=== PATIENT | female | born 1950 | race Caucasian/White ===

== ENCOUNTER 2016-09-19 17:34 | Emergency (ER) | payer MEDICARE, BC ==
[2016-09-19 17:40] VITALS: BP 162/101
[2016-09-19] MEDS ORDERED: IV NORMAL SALINE 1,000ML 1,000 ML IV SCH (18:09)
--- NOTE | 2016-09-19 18:16 | PHYS DOC ---
Past History Past Medical History: Asthma, Cancer, GERD, Heart Disease, Other Past Surgical History: Other Alcohol Use: None Drug Use: None Adult General Chief Complaint Chief Complaint: NAUSEA/VOMITING/DIARRHEA HPI HPI Patient is a 65 year old female who presents with complaint of nausea. Patient states that she has had symptoms off and on for several weeks. Patient states that she recently had shoulder surgery in July 2016. Patient was in post acute rehabilitation care until August 26, 2016. Patient states that she has been having trouble with nausea ever since being released from rehabilitation care. Patient states that she has been on daily oxycodone medication to treat pain in her right shoulder. Patient also has been taking Zofran which temporary relieves her symptoms. Patient denies any pain but states that she has a "sick feeling" in the middle of her stomach. Patient has not had a bowel movement for the last 2 days. Patient states that she feels dehydrated and is having generalized fatigue and weakness. Patient follows a Dr. Hess for primary care. Due to persistent symptoms, the patient came to the emergency department for evaluation. Review of Systems Review of Systems Constitutional: Denies fever or chills [] Eyes: Denies change in visual acuity, redness, or eye pain [] HENT: Denies nasal congestion or sore throat [] Respiratory: Denies cough or shortness of breath [] Cardiovascular: Denies chest pain or edema [] GI: Nausea, constipation, denies abdominal pain bloody stools or diarrhea [] : Denies dysuria or hematuria [] Musculoskeletal: Denies back pain or joint pain [] Integument: Denies rash or skin lesions [] Neurologic: Denies headache, focal weakness or sensory changes [] Current Medications Current Medications Current Medications Medications (Trade) Dose Ordered Sig/Tacos Start Time Stop Time Status Last Admin Dose Admin Famotidine (Pepcid) 20 mg 1X ONCE 09/19/16 18:15 09/19/16 18:16 UNV Metoclopramide HCl (Reglan) 10 mg 1X ONCE 09/19/16 18:15 09/19/16 18:16 UNV Sodium Chloride 1,000 ml @ 1,000 mls/hr Q1H 09/19/16 18:09 09/19/16 19:08 UNV Allergies Allergies Allergies Coded Allergies Type Severity Reaction Last Updated Verified morphine Allergy Unknown Anxiety 6/16/16 Yes Physical Exam Physical Exam Constitutional: Alert, afebrile, no acute distress. [] HENT: Normocephalic, atraumatic, bilateral external ears normal, oropharynx dry , no oral exudates, nose normal. [] Eyes: PERRLA, EOMI, conjunctiva normal, no discharge. [] Neck: Normal range of motion, no tenderness, supple, no stridor. [] Cardiovascular:Heart rate regular rhythm, no murmur [] Lungs & Thorax: Bilateral breath sounds clear to auscultation [] Abdomen: Hypoactive bowel sounds, soft, no tenderness, no masses, no pulsatile masses. [] Skin: Warm, dry, no erythema, no rash. [] Back: No tenderness, no CVA tenderness. [] Extremities: No tenderness, no cyanosis, no clubbing, ROM intact, no edema. [] Neurologic: Alert and oriented X 3, normal motor function, normal sensory function, no focal deficits noted. [] Current Patient Data Vital Signs Vital Signs Date Time Temp Pulse Resp B/P (MAP) Pulse Ox O2 Delivery O2 Flow Rate FiO2 09/19/16 17:40 98.7 90 22 95 Room Air Lab Results Laboratory Tests Test 09/19/16 18:00 09/19/16 18:35 White Blood Count 6.4 x10^3/uL Red Blood Count 4.54 x10^6/uL Hemoglobin 13.0 g/dL Hematocrit 39.4 % Mean Corpuscular Volume 87 fL Mean Corpuscular Hemoglobin 29 pg Mean Corpuscular Hemoglobin Concent 33 g/dL Red Cell Distribution Width 15.7 % Platelet Count 302 x10^3/uL Neutrophils (%) (Auto) 64 % Lymphocytes (%) (Auto) 27 % Monocytes (%) (Auto) 6 % Eosinophils (%) (Auto) 1 % Basophils (%) (Auto) 1 % Neutrophils # (Auto) 4.1 x10^3uL Lymphocytes # (Auto) 1.7 x10^3/uL Monocytes # (Auto) 0.4 x10^3/uL Eosinophils # (Auto) 0.1 x10^3/uL Basophils # (Auto) 0.1 x10^3/uL Sodium Level 137 mmol/L Potassium Level 4.1 mmol/L Chloride Level 100 mmol/L Carbon Dioxide Level 27 mmol/L Anion Gap 10 Blood Urea Nitrogen 11 mg/dL Creatinine 1.2 mg/dL Estimated GFR (Cockcroft-Gault) 45.1 BUN/Creatinine Ratio 9 Glucose Level 115 mg/dL Calcium Level 10.0 mg/dL Total Bilirubin 0.6 mg/dL Aspartate Amino Transf (AST/SGOT) 133 U/L Alanine Aminotransferase (ALT/SGPT) 180 U/L Alkaline Phosphatase 426 U/L Total Protein 7.8 g/dL Albumin 3.6 g/dL Albumin/Globulin Ratio 0.9 Lipase 132 U/L Urine Collection Type Unknown Urine Color Yellow Urine Clarity Clear Urine pH 6.0 Urine Specific [place] <=1.005 Urine Protein Neg Urine Glucose (UA) Neg mg/dL Urine Ketones (Stick) Neg mg/dL Urine Blood Neg Urine Nitrite Neg Urine Bilirubin Neg Urine Urobilinogen Dipstick 0.2 mg/dL Urine Leukocyte Esterase Trace Urine RBC Occ /HPF Urine WBC 5-10 /HPF Urine Squamous Epithelial Cells Mod /LPF Urine Bacteria Few /HPF Current Medications Medications (Trade) Dose Ordered Sig/Tacos Route PRN Reason Start Time Stop Time Status Last Admin Dose Admin Sodium Chloride 1,000 ml @ 1,000 mls/hr Q1H IV 09/19/16 18:09 09/19/16 19:08 DC 09/19/16 18:26 Famotidine (Pepcid) 20 mg 1X ONCE IVP 09/19/16 18:30 09/19/16 18:31 DC 09/19/16 18:26 Metoclopramide HCl (Reglan) 10 mg 1X ONCE IV 09/19/16 18:30 09/19/16 18:31 DC 09/19/16 18:26 Ondansetron HCl (Zofran Odt) 4 mg 1X ONCE PO 09/19/16 22:00 09/19/16 22:01 EKG EKG Not performed [] Radiology/Procedures Radiology/Procedures Two-view abdominal x-rays interpreted by me: Nonobstructive bowel gas pattern, no free air under the diaphragm [address] [address] IMAGING REPORT Signed PATIENT: DELIA POMPA ACCOUNT: [id number] : 1950 LOCATION: ER AGE: 65 SEX: F EXAM STATUS: REG ER ORD. PHYSICIAN: ROBERT FREGOSO MD REASON: nausea, elevated LFTs PROCEDURE: ABDOMEN LTD Right upper quadrant abdominal Indication: Nausea for 2 months, appetite, weight loss, elevated liver enzymes. Comparison: None. Procedure: Transabdominal ultrasound images are obtained. Findings: The pancreas is incompletely visualized, but there may be a pancreatic head mass measuring 3.2 cm in maximum dimension. Underlying liver parenchymal echogenicity is increased. The liver demonstrates presence of multiple hypoechoic masses the largest in the inferior right hepatic lobe measuring 4.6 cm. Right hepatic lobe measures 16.2 cm in length. Gallbladder has an unremarkable appearance. Common bile duct measures normally at 5 mm in diameter. Right kidney measures 9.1 cm in length. Right kidney is without evidence of obstruction or stone. Visualized portions of the IVC have normal caliber. Impression: 1. Multiple hepatic masses are seen, compatible with metastatic disease. 2. The pancreatic head appears to demonstrate hypoechoic mass measuring 3.2 cm in maximum dimension. Findings would be compatible with pancreatic malignancy as primary given the hepatic masses, although the common bile duct has a normal caliber at 5 mm. Electronically signed by: Abhilash Araujo MD (09/19/2016 9:16 PM) DICTATED AND SIGNED BY: ABHILASH ARAUJO MD DATE: 09/19/162111 CC: AIDAN HESS MD; ROBERT FREGOSO MD ~ [] Course & Med Decision Making Course & Med Decision Making Pertinent Labs and Imaging studies reviewed. (See chart for details) Patient was given IV fluids and IV Reglan in the emergency department. The patient's metabolic panel showed elevated LFTs thus prompting the patient's ultrasound. The patient's ultrasound shows concerning findings of a pancreatic mass with what appear to be metastatic lesions in the liver. I contacted the patient's primary doctor, Dr. Hess, and made him aware of the findings. He stated that he would be happy to follow-up with the patient tomorrow morning in his office at 8:45 in the morning. I sat and spoke with the patient regarding the findings and the likelihood that these represented possible malignant pancreatic cancer. The patient was aware of this and voiced understanding of what was explained to her. The patient states that she would like to go home this evening. The patient follows with Dr. Grewal, oncologist at [facility]. She was instructed to call the office of Dr. Grewal tomorrow to set up a follow-up appointment in the next 1-2 weeks. Patient will continue on her home nausea medication. I advised that the patient return to the emergency department for any worsening symptoms. Patient voiced understanding and in agreement with treatment plan. Dragon Disclaimer Dragon Disclaimer This chart was dictated in whole or in part using Voice Recognition software in a busy, high-work load, and often noisy Emergency Department environment. It may contain unintended and wholly unrecognized errors or omissions. Departure Departure: Impression: Primary Impression: Pancreatic mass Additional Impressions: Hepatic lesion Nausea Dehydration Disposition: HOME, SELF-CARE Condition: STABLE Referrals: AIDAN HESS MD (PCP) ASIA CASTILLO MD Patient Instructions: Nausea, Adult, Pancreatic Cancer Additional Instructions: Your ultrasound imaging showed lesions in your pancreas and liver which are concerning for possible metastatic pancreatic cancer. It is recommended that she call the office of Dr. Grewal in the morning to schedule an appointment to be seen in the next 1-2 weeks for reevaluation and further testing. I spoke with your primary doctor, Dr. Hess, and he said that he would have an appointment available to you tomorrow morning at 8:45 AM. If you do not wish to make this appointment it is recommended that she call his office in the morning to cancel. Continue your home medications for nausea. Return to the emergency department for any worsening symptoms. Problem Qualifiers ROBERT FREGOSO MD Sep 19, 2016 18:16
[2016-09-19 18:29] LABS: BASO # 0.1 x10^3/uL (0.0-0.2); BASO % 1 % (0-3); EOS # 0.1 x10^3/uL (0.0-0.7); EOS % 1 % (0-3); HEMATOCRIT 39.4 % (36.0-47.0); LYMPH # 1.7 x10^3/uL (1.0-4.8); LYMPH % 27 % (24-48); MEAN CORPUSCULAR HEMOGLOBIN 29 pg (25-35); MEAN CORPUSCULAR HGB CONC 33 g/dL (31-37); MEAN CORPUSCULAR VOLUME 87 fL (79-100); MONO # 0.4 x10^3/uL (0.0-1.1); MONO % 6 % (0-9); NEUT # 4.1 x10^3uL (1.8-7.7); NEUT % 64 % (31-73); PLATELET COUNT 302 x10^3/uL (140-400); RED BLOOD COUNT 4.54 x10^6/uL (3.50-5.40); RED CELL DISTRIBUTION WIDTH 15.7 % (11.5-14.5); WHITE BLOOD COUNT 6.4 x10^3/uL (4.0-11.0)
[2016-09-19] MEDS ORDERED: METOCLOPRAMIDE HCL 10 MG/2 ML VIAL. IV ONE (18:30)
[2016-09-19] MEDS ORDERED: FAMOTIDINE 20 MG/2 ML VIAL IVP ONE (18:30)
[2016-09-19 18:41] LABS: ALBUMIN 3.6 g/dL (3.4-5.0); ALBUMIN/GLOBULIN RATIO 0.9 (1.0-1.7); CREATININE 1.2 mg/dL (0.6-1.0); GFR 45.1; POTASSIUM 4.1 mmol/L (3.5-5.1); TOTAL BILIRUBIN 0.6 mg/dL (0.2-1.0); TOTAL PROTEIN 7.8 g/dL (6.4-8.2)
[2016-09-19 19:09] LABS: BILIRUBIN,URINE NEG (NEG); CLARITY,URINE CLEAR; COLOR,URINE YELLOW; GLUCOSE,URINE NEG (NEG)
[2016-09-19 19:10] LABS: BACTERIA,URINE FEW /HPF (0-FEW); NITRITE,URINE NEG (NEG); RBC,URINE OCC /HPF (0-2); SQUAMOUS EPITHELIAL CELL,UR MOD /LPF; UROBILINOGEN,URINE 0.2 mg/dL (0.2 mg/dL)
--- NOTE | 2016-09-19 21:20 | RAD ---
Right upper quadrant abdominal Indication: Nausea for 2 months, appetite, weight loss, elevated liver enzymes. Comparison: None. Procedure: Transabdominal ultrasound images are obtained. Findings: The pancreas is incompletely visualized, but there may be a pancreatic head mass measuring 3.2 cm in maximum dimension. Underlying liver parenchymal echogenicity is increased. The liver demonstrates presence of multiple hypoechoic masses the largest in the inferior right hepatic lobe measuring 4.6 cm. Right hepatic lobe measures 16.2 cm in length. Gallbladder has an unremarkable appearance. Common bile duct measures normally at 5 mm in diameter. Right kidney measures 9.1 cm in length. Right kidney is without evidence of obstruction or stone. Visualized portions of the IVC have normal caliber. Impression: 1. Multiple hepatic masses are seen, compatible with metastatic disease. 2. The pancreatic head appears to demonstrate hypoechoic mass measuring 3.2 cm in maximum dimension. Findings would be compatible with pancreatic malignancy as primary given the hepatic masses, although the common bile duct has a normal caliber at 5 mm. Electronically signed by: Abhilash Anderson MD (09/19/2016 9:16 PM)
[2016-09-19] MEDS ORDERED: ONDANSETRON ODT 4 MG TAB.RAPDIS PO ONE (22:00)
--- NOTE | 2016-09-20 07:45 | RAD ---
Supine and upright views of the abdomen Clinical indications: Nausea. No bowel movement in 2 days. Findings: There is mild fecal retention within the right side of the colon. No significant fecal retention is seen within the rectum. No obstructive bowel pattern is seen. No air-fluid levels are seen. No free air is seen. IMPRESSION: No acute abnormality of the abdomen is evident. Small right-sided pleural effusion is evident.
== END 2016-09-19 21:50 | disposition home or self-care (01) ==
LOC: ER 17:34
DX: K86.89 Other specified diseases of pancreas (principal); K76.89 Other specified diseases of liver; E86.0 Dehydration; J45.909 Unspecified asthma, uncomplicated; K21.9 Gastro-esophageal reflux disease without esophagitis; I51.9 Heart disease, unspecified; Z88.5 Allergy status to narcotic agent
CPT/HCPCS: 36415; 74020; 76705; 80053; 81001; 83690; 85027; 87086; 96361; 96374; 96375; 99285; J2765; Q0162; S0028; J7030